=== PATIENT | female | born 1935 | race Caucasian/White ===

== ENCOUNTER 2017-01-04 18:29 | Emergency (ER) | payer MEDICARE, BC ==
[2014-09-14 09:42] VITALS: BMI 32.0
[~2017-01-04 18:29] MED LIST: ALEVE220 MG PO; ASPIRIN81 MG PO; GLUCOPHAGE500 MG PO; LEVOXYL50 MCG PO; LISINOPRIL10 MG PO; PRAVACHOL40 MG PO
== END 2017-01-04 21:39 | disposition left against medical advice (07) ==
LOC: D.ER 18:29
DX: M25.512 Pain in left shoulder (principal)

== ENCOUNTER 2017-06-05 07:45 | Outpatient (CLI) | payer MEDICARE, BC ==
[~2017-06-05] VITALS: Ht 165.1 cm; Wt 68.2 kg
--- NOTE | ~2017-06-05 | OP ---
PATIENT NAME: GENNY ANTOINE MEDICAL RECORD: [id number] :37 LOCATION:D.M2 D.2121 ADMISSION DATE: SURGEON: RADHA MERRILL MD DATE OF OPERATION: 06/05/2017 PROCEDURES: 1. Left heart catheterization. 2. Selective coronary angiography. 3. Left ventriculogram. 4. Intravascular ultrasound. INDICATION: Chest pain compatible with angina, coronary artery disease, and previous cardiac stenting. PROCEDURE IN DETAIL: After informed consent was obtained and after a detailed explanation of risks, benefits as well as alternative therapies, the patient elected to proceed with angiogram and heart catheterization. The right femoral area was prepped and draped in normal sterile fashion. The right femoral artery was cannulated via modified Seldinger technique with placement of 6-Uzbek sheath. All catheters exchanged through this sheath. FINDINGS: The left ventriculogram was performed in the standard 30-degree ABDUL view reveals good cardiac wall motion throughout all segments. Overall ejection fraction estimated at 60%. SELECTIVE CORONARY ANGIOGRAPHY: 1. Left main is with no significant angiographic disease. 2. Left anterior descending has previously placed stent. There is questionable stenosis in the proximal aspect of this; however, intravascular ultrasound reveals there is no significant stenosis. 3. The left circumflex shows moderate irregularities, but no flow-limiting stenosis. 4. Right coronary has moderate irregularities, but no flow-limiting stenosis. OVERALL IMPRESSION: No significant restenosis of the previously placed stent. No disease elsewise. Chest pain is noncardiac in etiology. No further cardiac workup needs to be ascertained. TRANSINT:[id number] Voice Confirmation ID: [id number] DOCUMENT ID: [id number] RADHA MERRILL MD CC: [id number] DICTATION DATE: 06/05/17 1634 BATCH PLANT OPERATOR: 06/05/17 2336 [facility] [address] [place] [address]
--- NOTE | ~2017-06-05 | HEMODYNAMI ---
PATIENT:GENNY ANTOINE MEDICAL RECORD: [id number] : 37 [facility] [id number] AD[facility]ION DATE: 06/05/17 Generatedon:06/05/201716:37 Patient name: GENNY ANTOINE Patient #: [id number] SSN: : 1935 Date of study: 06/05/2017 Page: Of Hemodynamic Procedure Report Patient Data Patient Demographics Procedure consent was obtained First Name: GENNY Gender: Female Last Name: ARASH : 1935 Middle Initial: E Age: 81 year(s) Patient #: [id number] Race: Unknown Additional ID: [id number] Contact details [address]: [address] [place] [address] ROAD State: [place] City: [place] Zip code: [address] Admission Admission Data Admission Date: 06/05/2017 Admission Time: 7:45 Room #: D.2121 Weight (lbs.): 149.92 Weight (kg.): 68 Procedure Procedure Types Cath Procedure Diagnostic Procedure [facility] w/Coronaries FFR/IVUS Intra-Coronary IVUS Initial Miscellaneous Procedures Moderate Sedation up to 30 minutes Procedure Description Procedure Date Procedure Date: 06/05/2017 Procedure Start Time: 16:11 Procedure End Time: 16:37 Procedure Staff Name Function Lopez Rios MD Performing Physician Aldo Gentile RT Scrub Genesis Herring RN Nurse Misa Calix RT Monitor Procedure Data Cath Procedure Fluoroscopy Diagnostic fluoroscopy Total fluoroscopy Time: 2.5 time: 2.5 min min Diagnostic fluoroscopy Total fluoroscopy dose: 314 dose: 314 mGy mGy Contrast Material Contrast Material Type Amount (ml) Isovue 300 73 Entry Location Entry Primary Successful Side Size Upsize Upsize Entry Closure Succes sful Closure Location (Fr) 1 (Fr) 2 (Fr) Remarks Device Remarks Femoral Right 5 Fr 6 Fr artery Short Estimated blood loss: 10 ml Diagnostic catheters Device Type Used For End Catheter Placement Cordis 5Fr Pigtail Procedure Catheter (MP) Cordis 5Fr JL 4.0 Procedure Catheter (MP) Cordis 5Fr 3DRC Catheter Procedure (MP) Procedure Complications No complications Procedure Medications Medication Administration Route Dosage Oxygen NC 2 l/min Lidocaine 2% added to field 20 Heparin Flush Bag added to field 2 bags (1000units/500ml NS) 0.9% NaCl I.V. 100 ml/hr Versed I.V. 1 mg Versed I.V. 1 mg Fentanyl I.V. 50 mcg Fentanyl I.V. 50 mcg Radial Cocktail added to field 1 syringe (Verapomil 2mg/Nitro 400mcg/Heparin 1500units) Heparin Bolus I.V. 4000 units Hemodynamics Rest Heart Rate: 52 (bpm) Pressure Samples Time Site Value (mmHg) Purpose Heart Use Rate(bpm) 16:23 AO 133/59(89) Snapshot 68 Snapshots Pre Cath Intra NCS Post Cath Vital Signs Time Heart Resp SPO2 etCO2 [id number] NIBP (mmHg) Rhythm Pain Sedation Rate (ipm) (%) (mmHg) (mmHg) Status Level (bpm) 16:03:30 49 19 100 0 0 Measuring NSR 0 (11) 10(A) , No pain 16:03:46 52 22 100 0 0 172/72(137) NSR 0 (11) 10(A) , No pain 16:08:10 52 18 100 0 0 151/69(120) NSR 0 (11) 10(A) , No pain 16:12:26 51 15 98 0 0 137/64(107) NSR 0 (11) 9(A) , No pain 16:16:47 52 15 97 0 0 132/59(109) NSR 0 (11) 9(A) , No pain 16:21:46 69 15 96 0 0 Measuring NSR 0 (11) 9(A) , No pain 16:21:50 68 15 97 0 0 131/62(105) NSR 0 (11) 9(A) , No pain 16:26:08 70 15 96 0 0 128/63(105) NSR 0 (11) 9(A) , No pain 16:30:24 69 16 97 0 0 122/61(99) NSR 0 (11) 10(A) , No pain 16:34:36 66 19 99 0 0 125/65(106) NSR 0 (11) 10(A) , No pain Medications Time Medication Route Dose Verified Delivered Reason Note s Effectiveness by by 16:03:47 Oxygen NC 2 l/min Lopez Buffie used for Gabriel Herring RN procedure 16:03:53 Lidocaine 2% added 20ml Lopez Lopez for local to vial Gabriel Rios MD anesthetic field 16:04:00 Heparin Flush added 2 bags Lopez Marroquin used for Bag to Gabriel Rios MD procedure (1000units/500ml field NS) 16:04:09 0.9% NaCl I.V. 100 Lopez Buffie Per physician ml/hr Gabriel Herring RN 16:04:48 Radial Cocktail added 1 Lopez Buffie not used (Verapomil to syringe Gabriel Herring RN 2mg/Nitro field 400mcg/Heparin 1500units) 16:08:18 Versed I.V. 1 mg Lopez Kiranie for sedation Gabriel Herring RN 16:08:27 Fentanyl I.V. 50 mcg Lopez Hurtado for sedation Gabriel Herring RN 16:20:20 Versed I.V. 1 mg Lopez Kiranie for sedation Gabriel Herring RN 16:20:29 Fentanyl I.V. 50 mcg Lopez Hurtado for sedation Gabriel Herring RN 16:24:57 Heparin Bolus I.V. 4000 Lopez Hurtado for veri fied units Gabriel Herring RN anticoagulation with dr rios Procedure Log Time Note 15:12:31 Diagnostic Cath Status : Elective 15:20:48 Genesis Herring RN sent for patient. Start room use. 15:27:50 Time tracking: Regular hours 15:27:55 Plan of Care:Hemodynamics will remain stable., Cardiac rhythm will remain stable., Comfort level will be maintained., Respiratory function will remain adequate., Patient/ family verbilizes understanding of procedure., Procedure tolerated without complication., Recovers from procedure without complications.. 15:48:02 Patient received from PCU to CCL 1 Alert and oriented. Tansferred to table in Supine position. 15:48:04 Warm blankets applied, and chanel hugger turned on for patient comfort. 15:48:04 Correct patient and procedure confirmed by team. 15:48:05 Signed procedure consent form obtained from patient. 15:48:06 ECG and BP/O2 sat monitors applied to patient. 16:01:41 Vital chart was started 16:01:44 Baseline sample Acquired. 16:01:50 Rhythm: sinus bradycardia 16:01:52 Full Disclosure recording started 16:01:55 H&P Date Dictated: 06/05/2017 Within 30 days and on chart.. 16:01:56 Pre-procedure instructions explained to patient. 16:01:56 Pre-op teaching completed and patient verbalized understanding. 16:01:59 Family in patients room. 16:02:01 Patient NPO since Midnight. 16:02:02 Is the patient allergic to Iodine/contrast media? No. 16:02:04 Is patient on blood thinner?Yes 16:02:07 ACC The patient was administered the following blood thiners within the last 24 hours: ACCPlavix 16:02:32 Patient diabetic? Yes. 16:02:33 If diabetic: On Metformin? Yes 16:02:34 If on Metformin: Last Dose? 06/05/2017 16:02:37 Previous problem with sedation/anesthesia? No ? 16:02:38 Snore? No 16:02:40 Sleep apnea? No 16:02:41 Deviated septum? No 16:02:41 Opens mouth fully? Yes 16:02:43 Sticks out tongue? Yes 16:02:44 Airway obstruction? No ? 16:02:46 Dentures? No ? 16:02:59 Pre procedure: right dorsailis pedis pulse 1+ Palpable, but thready & weak; easily obliterated 16:03:01 Modified Osvaldo's test Ulnar < 7 seconds 16:03:03 Patient pain scale 0/10 ?. 16:03:24 IV patent on arrival in left antecubital with 0.9% NaCl at O. 16:03:27 Lab results completed and on chart. 16:03:30 Right Radial & Right Groin area was prepped with chlora-prep and draped in sterile fashion 16:03:31 Alarms reviewed by R. N. 16:03:32 Sharps counted by scrub and verified by R.N. 16:03:43 Use device set Radial Dx 16:03:45 Tegaderm 4 x 4 opened to sterile field. 16:03:45 Acist Manifold opened to sterile field. 16:03:46 Acist Hand Control opened to sterile field. 16:03:47 Oxygen 2 l/min NC was administered by Buffie Herring RN; used for procedure; 16:03:47 Acist Syringe opened to sterile field. 16:03:47 Medline Cath Pack opened to sterile field. 16:03:48 Bag Decanter opened to sterile field. 16:03:53 Lidocaine 2% 20ml vial added to field was administered by Lopez Rios MD; for local anesthetic; 16:03:53 Terumo 6Fr Slender Glidesheath opened to sterile field. 16:03:53 St Adolfo 260cm J .035 wire opened to sterile field. 16:03:53 MBrace Wrist Support opened to sterile field. 16:04:00 Heparin Flush Bag (1000units/500ml NS) 2 bags added to field was administered by Lopez Rios MD; used for procedure; 16:04:09 0.9% NaCl 100 ml/hr I.V. was administered by Genesis Herring RN; Per physician; 16:04:48 Radial Cocktail (Verapomil 2mg/Nitro 400mcg/Heparin 1500units) 1 syringe added to field was administered by Genesis Herring RN; ; not used 16:04:50 Physician paged 16:05:39 --------ALL STOP TIME OUT------ 16:05:40 Final Timeout: patient, procedure, and site verified with staff and physician. All members of the team are in agreement. 16:05:43 Right Radial & Right Groin site verified by team. 16:05:47 Physical assessment completed. ASA score P 2 - A patient with mild systemic disease as per Lopez Rios MD. 16:05:50 Sedation plan: IV Moderate Sedation Versed, Fentanyl 16:08:18 Versed 1 mg I.V. was administered by Genesis Herring RN; for sedation; 16:08:27 Fentanyl 50 mcg I.V. was administered by Genesis Herring RN; for sedation; 16:10:46 Procedure started. 16:11:17 Local anesthetic to right radial artery with Lidocaine 2% by Lopez Rios MD.INITIAL ACCESS ONLY 16:17:00 Unable to gain radial access, moving to femoral approach. 16:19:48 Terumo TR Band Standard opened to sterile field. 16:19:49 Terumo 5Fr Biscoe Sheath opened to sterile field. 16:20:20 Versed 1 mg I.V. was administered by Genesis Herring RN; for sedation; 16:20:29 Fentanyl 50 mcg I.V. was administered by Genesis Herring RN; for sedation; 16:20:33 TR Band to Right wrist due to hematoma. TR Band inflated to 15 ccs of air. 16:20:36 Zero performed for pressure channel P1 16:20:41 Zero performed for pressure channel P1 16:20:49 Local anesthetic to right femoral artery with Lidocaine 2% by Lopez Rios MD.ADDITIONAL ACCESS 16:21:00 A 5 Fr sheath was inserted into the Right Femoral artery 16:21:06 Use device set Multipack Set 16:21:08 Diagnostic Infinity 5Fr Multipack catheter opened to sterile field. 16:21:14 A Cordis 5Fr Pigtail Catheter (MP) was advanced over the wire and used for Procedure. 16:21:27 Patient Weight : 149.92 kg 16:21:35 LV angiography performed. 16:21:36 LV gram done using ABDUL 16:21:42 EF : 60 % 16:21:50 Injector settings: Ml/sec: 7, Volume: 15, 16:22:11 Catheter removed. 16:22:16 A Cordis 5Fr JL 4.0 Catheter (MP) was advanced over the wire and used for Procedure. 16:22:42 LCA angiography performed. 16:23:59 Catheter removed. 16:24:05 A Cordis 5Fr 3DRC Catheter (MP) was advanced over the wire and used for Procedure. 16:24:32 RCA angiography performed. 16:24:37 Catheter removed. 16:24:39 Terumo 6Fr Biscoe Sheath opened to sterile field. 16:24:39 Merit BasixCompak Inflation Kit opened to sterile field. 16:24:39 Arceo Whisper J 300cm 0.014 guide wire opened to sterile field. 16:24:46 Cordis 6FR XBLAD 3.5 guide catheter opened to sterile field. 16:24:54 [place] Eagleye IVUS Catheter opened to sterile field. 16:24:57 Heparin Bolus 4000 units I.V. was administered by Genesis Herring RN; for anticoagulation; verified with dr rios 16:25:04 Sheath upsized to a 6 Fr Short. 16:25:10 6 Fr XBLAD 3.5 guide catheter was inserted over the wire 16:26:30 Whisper wire advanced. 16:26:50 Wire advanced across lesion. 16:27:51 IVUS catheter advanced over wire. 16:28:19 IVUS pass to LAD lesion performed. 16:28:58 IVUS catheter removed over wire. 16:29:52 Wire removed. 16:29:53 Guide catheter removed. 16:30:09 Cordis 6Fr Exoseal opened to sterile field. 16:30:20 Procedure ended.(Physican Out) 16:34:00 Fluoroscopy time 02.50 minutes. 16:34:03 Fluoroscopy dose: 314 mGy 16:34:03 Flurop Dose total: 314 16:34:09 Contrast amount:Isovue 300 73ml. 16:34:19 Sharps counted by scrub and verified by R.N. 16:34:26 Insertion/operative site no bleeding no hematoma. 16:34:27 Post Procedure Pulses reassessed and unchanged 16:34:30 Post-procedure physical assessment completed. ASA score P 2 - A patient with mild systemic disease as per Lopez Rios MD. 16:34:32 Post procedure rhythm: unchanged. 16:34:35 Estimated blood loss: 10 ml 16:34:37 Post procedure instruction explained to patient.Patient verbalizes understanding. 16:34:37 Patient needs reinforcement of post procedure teaching. 16:34:51 Procedure type changed to Cath procedure, Diagnostic procedure, LHC, LHC w/Coronaries, FFR/IVUS, Intra-Coronary IVUS Initial, Miscellaneous Procedures, Moderate Sedation up to 30 minutes 16:35:02 Procedure Complication : No complications 16:35:29 Procedure and supply charges have been captured, reviewed, submitted and are correct. 16:37:15 Vital chart was stopped 16:37:15 See physician's report for complete and final results. 16:37:17 Report given to PCU. 16:37:21 Patient transfered to PCU with Bed. 16:37:23 Procedure ended. 16:37:23 Full Disclosure recording stopped 16:37:28 End room use (Document Last) Device Usage Item Name Manufacture Quantity Catalog Hospital Part Current Minimal Lot# / Number Charge Number Stock Stock Serial# Code Tegaderm 4 1 [id number] [id number] [id number] 5 x 4 Acist Acist 1 29076 008618 648905 068502 Manifold [employer] Inc Acist Hand Acist 1 96439 012527 316175 519553 5 Control Medical Systems Inc Acist Acist 1 33230 704142 919673 293062 20 Syringe Medical Systems Inc Medline Cardinal 1 [id number] 626427 41051 750114 5 Cath Pack Health Bag Microtek 1 2001S [id number] 75982 354288 5 Decanter Medical Inc. Terumo 6Fr Terumo 1 [id number] 040607 992082 969494 [address] Adolfo St Adolfo 1 552020 090191 107360 871781 30 260cm J .035 wire MBrace Advanced 1 140-0250-00 419430 72638 837218 5 Wrist Vascular Support Dynamics Terumo TR Terumo 1 [id number] 281313 724595 747688 40 Band Standard Terumo 5Fr Terumo 1 [id number] 856713 928795 404901 40 Biscoe Sheath Diagnostic Cardinal 1 [id number] 321820 10224 693409 30 Infinity Health 5Fr Multipack catheter Cordis 5Fr Cardinal 1 514546 5 Pigtail Health Catheter (MP) Cordis 5Fr Cardinal 1 776469 5 JL 4.0 Health Catheter (MP) Cordis 5Fr Cardinal 1 445583 5 3DRC Health Catheter (MP) Terumo 6Fr Terumo 1 [id number] 461587 896030 856460 40 Biscoe Sheath Merit Merit 1 [id number] 100806 264554 328710 15 BasixCompak Medical Inflation Kit Arceo Arceo 1 [id number] 736781 428679 596453 5 Whisper J Vascular 300cm 0.014 guide wire Cordis 6FR Cardinal 1 [id number] 374368 910380 181838 10 XBLAD 3.5 Health guide catheter [place] 1 [id number] 504318 570066 988512 8 [place] Eagleye IVUS Catheter Cordis 6Fr Cardinal 1 EX600 922870 855584 038705 10 [facility] Health Signature Audit [place] Stage Time Signature Unsigned Intra-Procedure 06/05/2017 Aldo Gentile 4:37:47 PM RT(R) Signatures Monitor : Misa Calix Signature : RT Date : Time : [place] [address] [place] [address]
[2017-06-05 08:13] LABS: BASOPHILS 0.1 % (0-2); EOSINOPHILS 0.9 % (0-7); HEMATOCRIT 36.7 % (36.0-48.0); IMMATURE GRANULOCYTES 0.3 % (0-5); LYMPHOCYTES 21.6 % (15-50); MCHC 32.7 g/dL (31.0-37.0); MCV 91.8 fL (80.0-100.0); MEAN PLATELET VOLUME 9.7 fL (7.4-10.4); NEUTROPHILS 69.1 % (40-80); PLATELET COUNT 238 10x3/uL (130-400); RDW 13.7 % (11.5-14.5); WBC 7.5 10x3/uL (4.8-10.8)
[2017-06-05 08:29] LABS: ALBUMIN 3.3 g/dL (3.4-5.0); ALKALINE PHOSPHATASE 53 U/L (46-116); ALT (SGPT) 21 U/L (10-68); BILIRUBIN - TOTAL 0.42 mg/dL (0.2-1.3); CALC OSMOLALITY 276 mosm/kg (275-300); CALCIUM 8.7 mg/dL (8.5-10.1); CARBON DIOXIDE 27.8 mmol/L (21.0-32.0); CHLORIDE - SERUM 104 mmol/L (98-107); CREATININE - SERUM 0.8 mg/dL (0.6-1.3); GLUCOSE 80 mg/dL (74-106); POTASSIUM - SERUM 4.2 mmol/L (3.5-5.1); PROTEIN - SERUM 7.1 g/dL (6.4-8.2); SODIUM 138 mmol/L (136-145); UREA NITROGEN 19 mg/dL (7-18); eGFR NON AFRICAN AMERICAN 73 mL/min (90-120)
[2017-06-05 08:33] LABS: CREATINE KINASE 72 UL (21-215)
[2017-06-05 08:35] LABS: TROPONIN-I < 0.017 ng/mL (0.000-0.060)
[2017-06-05 09:02] LABS: INR 0.92 (0.85-1.17); PROTIME 12.2 SECONDS (11.6-15.0)
[2017-06-05] MEDS ORDERED: LEVOXYL75 MCG PO (13:03)
[2017-06-05] MEDS ORDERED: FISH OIL 1,0001 CA1 PO (13:05)
[2017-06-05] MEDS ORDERED: VITAMIN D10000 UNI1 PO (13:07)
[2017-06-05] MEDS ORDERED: COZAAR25 MG PO (13:09)
[2017-06-05 14:21] VITALS: BP 115/49; Ht 165.1 cm; Wt 68.2 kg
--- NOTE | 2017-06-05 16:34 | HP ---
PATIENT: GENNY SHEIKH MEDICAL RECORD: [id number] ACCOUNT: [id number] LOCATION:[facility] D.2121 : 37 ADMISSION DATE: 06/05/17 HISTORY AND PHYSICAL EXAMINATION Cardiology Admit DATE OF SERVICE: 06/05/2017 DIAGNOSES: 1. Unstable angina. 2. Coronary artery disease. 3. Previous PTCA stent, 09/14/2014, LAD. 4. Hypertension. 5. Hyperlipidemia. 6. Noninsulin-dependent diabetes. HISTORY OF PRESENT ILLNESS: Mrs. Sheikh presents with 3 days of chest pain, chest pressure that woke her up each morning, today it was more severe with radiation down to the left arm into her jaw. She as well has shortness of breath. Chest x-ray shows mild pulmonary congestion. She is pain free at this point. Her EKG is with no acute ST-T abnormalities. The chest pain is just like the pain and discomfort she had prior to the stenting of her LAD in 2013. Her creatinine is normal. Troponin is as well normal. PHYSICAL EXAMINATION: GENERAL APPEARANCE: Well-nourished, well-developed, appears stated age. Level of distress, comfortable. PSYCHIATRIC: Mental status, alert, normal affect. Orientation, oriented to time, place and person. EYES: Lids and conjunctiva, noninjected. No discharge, no pallor. ENT: Lips, teeth, gums, normal dentition. Oropharynx, no cyanosis, no pallor. NECK: Carotid arteries, bilateral normal upstroke, no bruits, no thrills. JUGULAR VEINS: No jugular venous pressure or distention. CERVICAL LYMPH NODES: Nontender, nonenlarged. THYROID: Not enlarged. Nontender. No nodules. LUNGS: Respiratory effort, unlabored. CHEST: Normal curvature. No thoracic deformity. No chest wall tenderness. Percussion, resonant. Auscultation, clear. No wheezes, no rales, no rhonchi. CARDIOVASCULAR: Precordial exam, nondisplaced. No heaves or pericardial thrills. Rate and rhythm, regular. Heart sounds, normal S1, normal S2. No S3, no gallop, no rub. Systolic murmur, not heard. Diastolic murmur, not heard. EXTREMITIES: No cyanosis, no edema. Peripheral pulses, full and equal in all extremities, except as noted. No bruits appreciated. ABDOMEN: Soft, nondistended. Normal aorta. No bruit. Nontender. No masses. Liver, nontender, no hepatomegaly. Spleen, nontender, no splenomegaly. MUSCULOSKELETAL: No joint tenderness. No joint swelling. No erythema. NEUROLOGICAL: Normal gait, normal strength, normal tone. SKIN: Warm and dry. REVIEW OF SYSTEMS: The patient reports easy bruising but reports no swollen glands. The patient reports no fever, no night sweats, no significant weight gain, no significant weight loss. No significant exercise tolerance. The patient reports no dry eyes, no irritation, no vision change. Patient reports no difficulty hearing and no ear pain. Patient reports no frequent nose bleeds HISTORY AND PHYSICAL [id number] ARASH,GENNY E or nose and sinus problems. Patient reports on arm pain on exertion. No shortness of breath while lying down. No history of heart murmur. Patient reports no cough, no wheezing or coughing up blood. Patient reports no abdominal pain, no vomiting. Normal appetite. No diarrhea and not vomiting blood. No nausea and no constipation. Patient reports no incontinence. No difficulty urinating. No hematuria. No increased frequency. Patient reports no muscle aches. No weakness, no arthralgias, no back pain. No swelling of the extremities. Patient reports no abnormal mole, no jaundice, no rashes. Reports no loss of consciousness. No weakness and no numbness. No seizures, dizziness, or headaches. The patient reports no depression, no sleep disturbance, feeling safe in a relationship and no alcohol abuse. Patient reports on fatigue. Reports no runny nose or sinus pressure. No itching, no hives, and no frequent sneezing. OVERALL IMPRESSION: Chest pain compatible with angina, most likely she has recurrent hemodynamically significant coronary artery disease. We will proceed with coronary angiography. Further care depends upon findings of the angiography. TRANSINT:[id number] Voice Confirmation ID: [id number] DOCUMENT ID: [id number] RADHA MERRILL MD at 1634 CC: [id number] DICTATION DATE: 06/05/17 1106 [employer] AND SALARY ADMINISTRATOR: 06/05/17 1152 [facility] [address] [place] [address]
[2017-06-05 20:00] VITALS: BP 115/57
[2017-06-06 04:00] VITALS: BP 127/64
[2017-06-06 08:00] VITALS: BP 107/56
[2017-06-06 11:55] VITALS: BP 123/55
== END 2017-06-06 12:05 | disposition home or self-care (01) ==
LOC: D.CATH 07:45 → D.M2 07:45 → D.ER 07:45 → EDSTATUS 11:15 → D.M2 11:52 → D.CATH 06-06 12:05
PROVIDERS: Emergency Medicine
DX: R07.89 Other chest pain (principal); I25.10 Atherosclerotic heart disease of native coronary artery without angina pectoris; Z95.5 Presence of coronary angioplasty implant and graft; I10 Essential (primary) hypertension; E78.5 Hyperlipidemia, unspecified; E11.9 Type 2 diabetes mellitus without complications; Z01.812 Encounter for preprocedural laboratory examination

== ENCOUNTER 2017-06-11 08:48 | Emergency (ER) | payer MEDICARE, BC ==
[2017-06-05 14:21] VITALS: BMI 25.0
[~2017-06-11 08:48] MED LIST changes: +COZAAR25 MG PO; +FISH OIL 1,0001 CA1 PO; +LEVOXYL75 MCG PO; +VITAMIN D10000 UNI1 PO
[2017-06-11 10:06] LABS: CREATINE KINASE 63 UL (21-215)
[2017-06-11 10:08] LABS: TROPONIN-I < 0.017 ng/mL (0.000-0.060)
[2017-06-11 10:55] LABS: BASOPHILS 0.3 % (0-2); EOSINOPHILS 1.3 % (0-7); HEMATOCRIT 33.1 % (36.0-48.0); HEMOGLOBIN 10.8 g/dL (12-16); IMMATURE GRANULOCYTES 0.2 % (0-5); LYMPHOCYTES 27.7 % (15-50); MCH 29.8 pg (26.0-34.0); MCHC 32.6 g/dL (31.0-37.0); MCV 91.4 fL (80.0-100.0); MEAN PLATELET VOLUME 10.7 fL (7.4-10.4); MONOCYTES 7.8 % (2-11); NEUTROPHILS 62.7 % (40-80); PLATELET COUNT 259 10x3/uL (130-400); RBC 3.62 10x6/uL (4.00-5.40); WBC 6.3 10x3/uL (4.8-10.8)
== END 2017-06-11 10:32 | disposition home or self-care (01) ==
LOC: D.ER 08:48
PROVIDERS: Emergency Medicine
DX: R07.89 Other chest pain (principal); F41.9 Anxiety disorder, unspecified; I25.10 Atherosclerotic heart disease of native coronary artery without angina pectoris; I10 Essential (primary) hypertension; E11.9 Type 2 diabetes mellitus without complications; R11.0 Nausea; R00.1 Bradycardia, unspecified

== ENCOUNTER → 2017-07-09 09:37 | Outpatient (CLI) | payer MEDICARE, BC ==
[2017-06-05 14:21] VITALS: BMI 25.0
== END | disposition home or self-care (01) ==
LOC: D.MRI 09:37
DX: M21.379 Foot drop, unspecified foot (principal)

== ENCOUNTER 2017-11-05 10:22 | Emergency (ER) | payer MEDICARE, BC ==
[2017-06-05 14:21] VITALS: BMI 25.0
[2017-11-05 11:05] LABS: BASOPHILS 0.2 % (0-2); EOSINOPHILS 1.2 % (0-7); HEMATOCRIT 38.2 % (36.0-48.0); HEMOGLOBIN 12.2 g/dL (12-16); IMMATURE GRANULOCYTES 0.2 % (0-5); LYMPHOCYTES 29.5 % (15-50); MCH 29.7 pg (26.0-34.0); MCHC 31.9 g/dL (31.0-37.0); MCV 92.9 fL (80.0-100.0); MEAN PLATELET VOLUME 10.3 fL (7.4-10.4); MONOCYTES 8.6 % (2-11); NEUTROPHILS 60.3 % (40-80); PLATELET COUNT 239 10x3/uL (130-400); RBC 4.11 10x6/uL (4.00-5.40); RDW 13.5 % (11.5-14.5); WBC 5.7 10x3/uL (4.8-10.8)
[2017-11-05 11:23] LABS: INR 0.91 (0.85-1.17); PROTIME 11.9 SECONDS (11.6-15.0)
[2017-11-05 11:32] LABS: ALBUMIN 3.6 g/dL (3.4-5.0); ALKALINE PHOSPHATASE 73 U/L (46-116); ALT (SGPT) 15 U/L (10-68); BILIRUBIN - TOTAL 0.36 mg/dL (0.2-1.3); CALC OSMOLALITY 279 mosm/kg (275-300); CALCIUM 9.2 mg/dL (8.5-10.1); CARBON DIOXIDE 31.5 mmol/L (21.0-32.0); CHLORIDE - SERUM 103 mmol/L (98-107); CREATININE - SERUM 0.7 mg/dL (0.6-1.3); GLUCOSE 78 mg/dL (74-106); POTASSIUM - SERUM 3.6 mmol/L (3.5-5.1); PROTEIN - SERUM 7.5 g/dL (6.4-8.2); SODIUM 141 mmol/L (136-145); UREA NITROGEN 13 mg/dL (7-18); eGFR NON AFRICAN AMERICAN 85 mL/min (90-120)
[2017-11-05 11:37] LABS: CREATINE KINASE 51 UL (21-215); TROPONIN-I < 0.017 ng/mL (0.000-0.060)
[2017-11-05 12:03] LABS: APPEARANCE SLT CLOUDY (CLEAR); BILIRUBIN NEGATIVE (NEGATIVE); COLOR YELLOW (YELLOW); GLUCOSE NEGATIVE (NEGATIVE); KETONE NEGATIVE (NEGATIVE); NITRITE NEGATIVE (NEGATIVE); PROTEIN NEGATIVE (NEGATIVE); SPECIFIC GRAVITY 1.015 (1.005-1.020); UROBILINOGEN NORMAL (NORMAL)
[2017-11-05 12:06] LABS: BACTERIA MANY /hpf (NONE SEEN); EPITHELIAL CELLS 0-5 /hpf (0-5); RED CELLS - URINE 0-5 /hpf (0-5); WHITE CELLS - URINE 25-50 /hpf (0-5)
== END 2017-11-05 13:29 | disposition home or self-care (01) ==
LOC: D.ER 10:22
PROVIDERS: Family Medicine; Nurse Practitioner Family
DX: I10 Essential (primary) hypertension (principal); N39.0 Urinary tract infection, site not specified; S42.292A Other displaced fracture of upper end of left humerus, initial encounter for closed fracture; X58.XXXA Exposure to other specified factors, initial encounter; Y93.89 Activity, other specified; Y92.019 Unspecified place in single-family (private) house as the place of occurrence of the external cause; I25.10 Atherosclerotic heart disease of native coronary artery without angina pectoris; E11.9 Type 2 diabetes mellitus without complications; R00.1 Bradycardia, unspecified

== ENCOUNTER 2018-11-17 23:30 | Emergency (ER) | payer MEDICARE, BC ==
[~2018-11-17] VITALS: Ht 165.1 cm; Wt 63.6 kg
[2018-11-17 23:32] VITALS: Ht 165.1 cm; Wt 63.6 kg
[2018-11-17] MEDS ORDERED: NEURONTIN 300300 MG (23:33)
[2018-11-18] MEDS ORDERED: VOLTAREN75 MG PO (00:36)
[2018-11-18 00:56] VITALS: BP 163/67
== END 2018-11-18 00:56 | disposition home or self-care (01) ==
LOC: D.ER 23:30
DX: M75.52 Bursitis of left shoulder (principal); M25.512 Pain in left shoulder; E11.9 Type 2 diabetes mellitus without complications; I10 Essential (primary) hypertension

== ENCOUNTER 2019-03-09 14:43 | Emergency (ER) | payer MEDICARE, BC ==
[~2019-03-09 14:43] MED LIST changes: +NEURONTIN 300300 MG; +VOLTAREN75 MG PO
[2019-03-09 15:02] VITALS: BMI 23.3
[2019-03-09 15:38] LABS: APPEARANCE CLEAR (CLEAR); BILIRUBIN NEGATIVE (NEGATIVE); COLOR YELLOW (YELLOW); GLUCOSE NEGATIVE (NEGATIVE); KETONE NEGATIVE (NEGATIVE); NITRITE NEGATIVE (NEGATIVE); PROTEIN NEGATIVE (NEGATIVE); UROBILINOGEN NORMAL (NORMAL)
[2019-03-09 15:39] LABS: BACTERIA FEW /hpf (NONE SEEN); RED CELLS - URINE 0-5 /hpf (0-5); WHITE CELLS - URINE 0-5 /hpf (0-5)
[2019-03-09 15:46] LABS: BASOPHILS 0.3 % (0-2); EOSINOPHILS 1.7 % (0-7); HEMATOCRIT 35.5 % (36.0-48.0); HEMOGLOBIN 11.7 g/dL (12-16); IMMATURE GRANULOCYTES 0.2 % (0-5); LYMPHOCYTES 26.8 % (15-50); MCH 30.2 pg (26.0-34.0); MCV 91.5 fL (80.0-100.0); MEAN PLATELET VOLUME 10.4 fL (7.4-10.4); MONOCYTES 8.8 % (2-11); NEUTROPHILS 62.2 % (40-80); PLATELET COUNT 246 10x3/uL (130-400); RBC 3.88 10x6/uL (4.00-5.40); RDW 13.7 % (11.5-14.5); WBC 5.9 10x3/uL (4.8-10.8)
[2019-03-09 16:07] LABS: ALBUMIN 3.6 g/dL (3.4-5.0); ALKALINE PHOSPHATASE 62 U/L (46-116); ALT (SGPT) 16 U/L (10-68); BILIRUBIN - TOTAL 0.23 mg/dL (0.2-1.3); CALC OSMOLALITY 277 mosm/kg (275-300); CALCIUM 8.8 mg/dL (8.5-10.1); CARBON DIOXIDE 27.7 mmol/L (21.0-32.0); CHLORIDE - SERUM 102 mmol/L (98-107); CREATININE - SERUM 0.7 mg/dL (0.6-1.3); GLUCOSE 109 mg/dL (74-106); PROTEIN - SERUM 7.4 g/dL (6.4-8.2); SODIUM 138 mmol/L (136-145); UREA NITROGEN 15 mg/dL (7-18); eGFR NON AFRICAN AMERICAN 85 mL/min (90-120)
[2019-03-09] MEDS ORDERED: CIPRO500 MG PO (17:17)
[2019-03-09 17:25] VITALS: BP 142/88
== END 2019-03-09 17:28 | disposition home or self-care (01) ==
LOC: D.ER 14:43
PROVIDERS: Emergency Medicine
DX: N39.0 Urinary tract infection, site not specified (principal); R50.9 Fever, unspecified

== ENCOUNTER → 2019-08-04 08:00 | Outpatient (CLI) | payer MEDICARE, BC ==
[~2019-08-04 08:00] MED LIST changes: +CIPRO500 MG PO
== END | disposition home or self-care (01) ==
LOC: D.MAMMO 08:00
PROVIDERS: ATTEND Family Medicine
DX: Z12.31 Encounter for screening mammogram for malignant neoplasm of breast (principal)

== ENCOUNTER 2019-08-20 09:00 | Outpatient (CLI) | payer MEDICARE, BC | END 2019-08-20 10:00 | disposition home or self-care (01) | LOC: D.MAMMO 09:00 | PROVIDERS: ATTEND Family Medicine | DX: R92.8 Other abnormal and inconclusive findings on diagnostic imaging of breast (principal) ==

== ENCOUNTER 2020-07-18 21:41 | Emergency (ER) | payer MEDICARE, BC ==
[~2020-07-18] VITALS: Ht 165.1 cm; Wt 61.7 kg
[2020-07-18 21:57] VITALS: Ht 165.1 cm; Wt 61.7 kg
[2020-07-19] MEDS ORDERED: NAPROSYN500 MG PO (01:14)
[2020-07-19] MEDS ORDERED: METHOCARBAMOL500 MG PO (01:14)
[2020-07-19 01:23] VITALS: BP 159/87
== END 2020-07-19 01:23 | disposition home or self-care (01) ==
LOC: D.ER 21:41
DX: M25.511 Pain in right shoulder (principal); S16.1XXA Strain of muscle, fascia and tendon at neck level, initial encounter; X58.XXXA Exposure to other specified factors, initial encounter